=== PATIENT | male | born 1960 | race Caucasian/White ===

== ENCOUNTER 2016-05-19 05:32 | Inpatient (IN) | payer BC ==
[2016-05-18 10:37] LABS: BASOPHILS 0.2 %; BASOPHILS ABSOLUTE 0.02 10/3/uL (0.0-0.16); EOSINOPHILS 3.3 %; HEMATOCRIT 41.8 % (40.0-51.0); IMMATURE GRANULOCYTES 0.1 %; IMMATURE GRANULOCYTES ABSOLUTE 0.01 10/3/uL (0.0-0.11); LYMPHOCYTES 19.8 %; LYMPHOCYTES ABSOLUTE 2.43 10/3/uL (0.67-4.30); MEAN CORPUS HGB CONC 35.9 g/dL (32.0-36.0); MEAN CORPUSCULAR HEMOGLOB 32.2 pg (26.0-34.0); MEAN CORPUSCULAR VOLUME 89.7 fL (80-100); MEAN PLATELET VOLUME 9.7 fL (9.2-13.0); MONOCYTES 9.9 %; MONOCYTES ABSOLUTE 1.21 10/3/uL (0.21-1.20); NEUTROPHILS 66.7 %; NEUTROPHILS ABSOLUTE 8.19 10/3/uL (2.02-8.40); PLATELET COUNT 369 10/3/uL (150-400); RBC DISTRIBUTION WIDTH 14.4 % (12.0-16.0); RED CELL COUNT 4.66 10/6/uL (4.7-6.1); WHITE BLOOD CELLS 12.3 10/3/uL (4.5-10.5)
[2016-05-18 10:43] LABS: MANUAL DIFF NO %
[2016-05-18 10:51] LABS: A/G RATIO 1.3 (0.7-1.9); ALKALINE PHOSPHATASE 67 U/L (45-117); BUN (BLOOD UREA NITROGEN) 13 MG/DL (6-23); CALCIUM, SERUM 9.4 MG/DL (8.5-10.4); CHLORIDE, SERUM 99 MMOL/L (96-112); CO2 (CARBON DIOXIDE) 26 MMOL/L (24-34); CREATININE 0.82 MG/DL (0.70-1.30); GFR AFRICAN AMERICAN 116 ML/MIN (>=60); GFR NON AFRICAN AMERICAN 100 ML/MIN (>=60); GLOBULIN 3.2 G/DL (2.5-4.1); GLUCOSE, SERUM 96 MG/DL (60-99); POTASSIUM, SERUM 4.5 MMOL/L (3.5-5.3); SGOT(AST) 14 U/L (5-40); SGPT(ALT) 11 U/L (5-65); SODIUM, SERUM 135 MMOL/L (135-148); TOTAL BILIRUBIN 0.4 MG/DL (0-1.2); TOTAL PROTEIN 7.2 G/DL (6.0-8.5)
[2016-05-18 11:05] LABS: ASCORBIC ACID (UR NOT ORDER) NEG (NEG); BILIRUBIN, URINE NEGATIVE (NEG); KETONE, URINE NEGATIVE (NEG); LEUKOCYTE ESTERASE(NOT OR NEG (NEG); WBC (NOT ORDERED) (RFLEX) < 1 (0-5)
--- NOTE | ~2016-05-19 | OP ---
Record Of Operation [facility] [address] [place]. [address] NAME: AIDE PEOPLES : 64 STATUS : ADM IN PAT#: [id number] AGE: 56 ADM/REG DATE : 05/19/16 MR#: [id number] REPORT SERV DATE: 05/20/16 DICTATED BY: NELI BENNETT JR. 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 NAME OF OPERATION: Robotic-assisted right thoracoscopy for staging of lung cancer, removal of anterior mediastinal thymic nodule location 3A, intercostal nerve block. SURGEON: Neli Bennett M.D. RESIDENT SURGEON: Domenico Castillo MD EDUCATION PROGRAM ASSOCIATE: Finn Horta. ANESTHESIA: General endotracheal. FINDINGS: The patient was noted to have on PET-CT scan, a hypermetabolic lesion sitting above the innominate vein in the thymic tissue or in the anterior mediastinum. I labeled this with 3A location. It was highly suggestive of metastatic squamous cell cancer. Given its unusual location as well as the difficult location to reach, it was felt that staging thoracoscopy was the only option as far as getting a biopsy or more appropriately identifying whether this was related to his squamous cell cancer of the lung or not. We were able to find this with robotic assistance. There was a firm nodule contained within the remnants of thymic tissue in the anterior mediastinum sitting just above the innominate vein. It was removed in its entirety. Frozen section confirmed a granulomatous reaction from what looked like a foreign body material. There were a lot of crystals inside this nodularity. It was definitely not related to squamous cell carcinoma. This now down stages into a T3 N0 M0 and surgical resection is advised. DETAILS OF OPERATION: After adequate anesthesia, the patient was intubated. The left-sided double lumen endotracheal tube was placed. The patient was then positioned in the supine position. The right chest was elevated. He was prepped and draped in routine sterile fashion. The camera was introduced into the right chest cavity. Two additional Optiview was used in placement of the trocar. Two additional trocars were placed. The da Declan was docked. The instruments were placed under direct visualization. The chest was explored noting the tumor involving the chest wall. This did appear to be a resectable tumor, although, it was involving the chest wall. We were able to find the mass in the anterior mediastinum in the thymic tissue. This was excised removing some surrounding thymic tissue. It was withdrawn through the anterior trocar site. Frozen section confirmed this to be a non malignant granulomatous inflammation. Adequate hemostasis was obtained. The remainder Record Of Operation [facility] [id number] [place]. [address] NAME: AIDE PEOPLES : 64 STATUS : ADM IN [facility]#: [id number] AGE: 56 ADM/REG DATE : 05/19/16 MR#: [id number] REPORT SERV DATE: 05/20/16 DICTATED BY: NELI BENNETT JR. DATE: 05/19/16 REPORT STATUS : Draft TRANSCRIBED BY: IGNACIO DATE: 05/19/16 of the chest was explored noting no other contraindications of surgical resection. Intercostal nerve block was performed. A suction catheter was placed in chest cavity. The CO2 was removed and the lung was reinflated. The trocars were removed. The da Declan was undocked. Trocar sites were closed with running Vicryl sutures. The skin was closed with running monofilament suture. A Dermabond dressing was applied. The procedure was terminated at this point. The patient tolerated the procedure well and taken back to recovery room in stable condition. PINA/IGNACIO Neli Bennett Jr., M.D. / [id number] CC: Anabella Rahman Jr., MD
[~2016-05-19 05:32] MED LIST: DIL2TAB PO; KEPPRA500 PO; NEUR400 PO; ZOFRAN8 PO
[2016-05-20 06:55] LABS: BASOPHILS 0.1 %; BASOPHILS ABSOLUTE 0.01 10/3/uL (0.0-0.16); EOSINOPHILS 0.1 %; EOSINOPHILS ABSOLUTE 0.02 10/3/uL (0.0-0.53); HEMOGLOBIN 12.9 g/dL (13.6-17.8); IMMATURE GRANULOCYTES 0.1 %; IMMATURE GRANULOCYTES ABSOLUTE 0.02 10/3/uL (0.0-0.11); LYMPHOCYTES 13.6 %; LYMPHOCYTES ABSOLUTE 2.18 10/3/uL (0.67-4.30); MEAN CORPUS HGB CONC 35.8 g/dL (32.0-36.0); MEAN CORPUSCULAR HEMOGLOB 31.7 pg (26.0-34.0); MEAN CORPUSCULAR VOLUME 88.5 fL (80-100); MEAN PLATELET VOLUME 9.3 fL (9.2-13.0); MONOCYTES 10.2 %; MONOCYTES ABSOLUTE 1.63 10/3/uL (0.21-1.20); NEUTROPHILS 75.9 %; NEUTROPHILS ABSOLUTE 12.15 10/3/uL (2.02-8.40); PLATELET COUNT 328 10/3/uL (150-400); RBC DISTRIBUTION WIDTH 14.5 % (12.0-16.0); RED CELL COUNT 4.07 10/6/uL (4.7-6.1)
[2016-05-20 06:57] LABS: MANUAL DIFF NO %
[2016-05-20 07:06] LABS: BUN (BLOOD UREA NITROGEN) 10 MG/DL (6-23); CALCIUM, SERUM 8.5 MG/DL (8.5-10.4); CHLORIDE, SERUM 104 MMOL/L (96-112); CO2 (CARBON DIOXIDE) 24 MMOL/L (24-34); CREATININE 0.74 MG/DL (0.70-1.30); GFR AFRICAN AMERICAN 121 ML/MIN (>=60); GFR NON AFRICAN AMERICAN 105 ML/MIN (>=60); GLUCOSE, SERUM 102 MG/DL (60-99); POTASSIUM, SERUM 3.6 MMOL/L (3.5-5.3); SODIUM, SERUM 140 MMOL/L (135-148)
[2016-05-20] MEDS ORDERED: NORCO1 TAB PO (08:37)
[2016-05-20] MEDS ORDERED: MSCONTIN PO (08:37)
== END 2016-05-20 14:34 | disposition home or self-care (01) | DRG 168 ==
LOC: SDC/OF 05:32 → PACU 11:07 → 5NO 12:07
PROVIDERS: Thoracic Surgery (Cardiothoracic Vascular Surgery)
PROC: 3E0T3BZ Introduction of Anesthetic Agent into Peripheral Nerves and Plexi, Percutaneous Approach (ICD-10-PCS; 2016-05-19)
PROC: 8E0W4CZ Robotic Assisted Procedure of Trunk Region, Percutaneous Endoscopic Approach (ICD-10-PCS; 2016-05-19)
PROC: 07B74ZX Excision of Thorax Lymphatic, Percutaneous Endoscopic Approach, Diagnostic (ICD-10-PCS; principal; 2016-05-19 07:30)
DX: C34.11 Malignant neoplasm of upper lobe, right bronchus or lung (principal); J44.9 Chronic obstructive pulmonary disease, unspecified; G89.4 Chronic pain syndrome; G40.909 Epilepsy, unspecified, not intractable, without status epilepticus; Z87.891 Personal history of nicotine dependence
CPT/HCPCS: 36415; 80048; 80053; 81001; 82962; 83036; 85025; 85610; 86850; 86900; 86901; 87641; 88305; 88331; 93005; 94640; A9270-GY; G0378; J0690; J1170; J1885; J2250; J2370; J2405; J2710; J2795; J3010

== ENCOUNTER 2016-05-25 11:56 | Inpatient (IN) | payer BC ==
--- NOTE | ~2016-05-25 | OP ---
Record Of Operation [facility] [address] [place]. [address] NAME: AIDE PEOPLES : 64 STATUS : ADM IN PAT#: [id number] AGE: 56 ADM/REG DATE : 05/25/16 MR#: [id number] REPORT SERV DATE: 05/26/16 DICTATED BY: NELI BENNETT JR. DATE: 05/25/16 REPORT STATUS : Draft TRANSCRIBED BY: MODL DATE: 05/25/16 DATE OF PROCEDURE: 05/25/2016 PREOPERATIVE DIAGNOSES: Non-small cell lung cancer, right upper lobe with chest wall involvement, status post recent staging thoracoscopy, chronic obstructive pulmonary disease, history of seizure disorder. POSTOPERATIVE DIAGNOSIS: Non-small cell lung cancer, right upper lobe with chest wall involvement, status post recent staging thoracoscopy, chronic obstructive pulmonary disease, history of seizure disorder. NAME OF OPERATION: Bronchoscopy, right thoracoscopy with right upper lobectomy with En-bloc chest wall resection including ribs 3 and 4, complete mediastinal node dissection, yasmine stations 4R, 7, 9, 10R, 11R, and intercostal nerve block. SURGEON: Neli Bennett MD RESIDENT SURGEON: Dr. Domenico Castillo. MINERAL RESOURCES INSPECTOR: Finn Collins. ANESTHESIA: General tracheal. FINDINGS: The patient was noted to have obvious tumor involving the right upper lobe, extending into the chest wall. We had seen it was certainly involving rib #3. It was also adherent to rib #4. The only way to get a margin was to resect the chest wall including the intercostal muscle, chest wall muscle, and ribs 3 and 4. We did this en block. Our margins were grossly negative. The defect in the chest was not reconstructed. It was underneath the scapula. There area was marked with clips. The nodes had a benign appearance. Final pathology is pending. There were no unusual findings on bronchoscopy. Mucous secretions were evacuated. DETAILS OF OPERATION: After adequate general anesthesia, the patient was intubated. A bronchoscopy was performed, noting no contraindications to resection. A left-sided double- lumen endotracheal tube was then placed. The patient was then positioned in the left lateral decubitus position. The right chest was prepped and draped in routine sterile fashion. A small incision was made overlying the lower intercostal space, and a separate anterior trocar incision was also made. Through these two incision sites, above findings were noted. The mass extending into the chest well as explored. It was felt to definitely need a chest wall resection. The area was outlined with electrocautery. The ribs were resected with bone cutters and chisel and hammer, removing the ribs #3 and #4, both anteriorly and posteriorly. Electrocautery was used to complete the dissection, excising the area of the chest wall. This took about 2 hours of the operative time. Once we were able to have the tumor free from the surrounding chest wall. The right upper lobe was then resected in its traditional Record Of Operation [facility] [id number] [place]. [address] NAME: AIDE PEOPLES : 64 STATUS : ADM IN [facility]#: [id number] AGE: 56 ADM/REG DATE : 05/25/16 MR#: [id number] REPORT SERV DATE: 05/26/16 DICTATED BY: NELI BENNETT JR. DATE: 05/25/16 REPORT STATUS : Draft TRANSCRIBED BY: IGNACIO DATE: 05/25/16 fashion. The inferior pulmonary ligament was taken down. The inferior pulmonary vein was identified. The superior pulmonary vein and the middle lobe of the vein were identified. The superior pulmonary vein was then transected preserving the middle lobe branch. The pulmonary arterial branches were then divided with a vascular stapler. The bronchus was divided with a CASSANDRA stapler. The fissure was divided with multiple firings of the CASSANDRA stapler with tissue reinforcements. Dissection was difficult, given the scarring and fibrosis in this area. The specimen was then placed in a specimen bag and brought through the anterior trocar site. Trocar site had to be enlarged to get the chest wall dissection and ribs out. Nodes from the paratracheal, subcarinal, and inferior pulmonary ligament regions were removed as well as the hilar and right mainstem bronchial nodes. There were no nodes in the 4R location. Adequate hemostasis was obtained. The chest was thoroughly irrigated with sterile water. A 32-Turkish chest tube was placed. The lung was reinflated. The trocar site was closed in standard fashion with running Vicryl sutures. The skin was closed with running monofilament suture. A Dermabond dressing was applied, and the procedure was terminated at this point. The patient tolerated the procedure well and was taken back to the recovery room in stable condition. PINA/IGNACIO LUBIN: 05/25/2016 18:21:19 Neli Bennett Jr., M.D. / [id number] CC: Anabella Rahman Jr., MD
[~2016-05-25 11:56] MED LIST changes: +MSCONTIN PO; +NORCO1 TAB PO
[2016-05-25 18:59] LABS: BASOPHILS 0.1 %; BASOPHILS ABSOLUTE 0.02 10/3/uL (0.0-0.16); EOSINOPHILS 0 %; EOSINOPHILS ABSOLUTE 0.01 10/3/uL (0.0-0.53); IMMATURE GRANULOCYTES 0.3 %; IMMATURE GRANULOCYTES ABSOLUTE 0.06 10/3/uL (0.0-0.11); LYMPHOCYTES 5.4 %; LYMPHOCYTES ABSOLUTE 1.16 10/3/uL (0.67-4.30); MEAN CORPUS HGB CONC 34.6 g/dL (32.0-36.0); MEAN CORPUSCULAR HEMOGLOB 31.5 pg (26.0-34.0); MEAN PLATELET VOLUME 9.2 fL (9.2-13.0); MONOCYTES 1.3 %; MONOCYTES ABSOLUTE 0.27 10/3/uL (0.21-1.20); NEUTROPHILS 92.9 %; NEUTROPHILS ABSOLUTE 19.83 10/3/uL (2.02-8.40); PLATELET COUNT 417 10/3/uL (150-400); RBC DISTRIBUTION WIDTH 14.9 % (12.0-16.0); RED CELL COUNT 4.45 10/6/uL (4.7-6.1); WHITE BLOOD CELLS 21.4 10/3/uL (4.5-10.5)
[2016-05-25 19:00] LABS: HEMATOCRIT 40.5 % (40.0-51.0); MANUAL DIFF NO %
[2016-05-25 19:12] LABS: BUN (BLOOD UREA NITROGEN) 12 MG/DL (6-23); CALCIUM, SERUM 8.2 MG/DL (8.5-10.4); CHLORIDE, SERUM 107 MMOL/L (96-112); CO2 (CARBON DIOXIDE) 24 MMOL/L (24-34); CREATININE 0.76 MG/DL (0.70-1.30); GFR AFRICAN AMERICAN 120 ML/MIN (>=60); GFR NON AFRICAN AMERICAN 103 ML/MIN (>=60); SODIUM, SERUM 142 MMOL/L (135-148)
[2016-05-25 19:15] LABS: GLUCOSE, SERUM 143 MG/DL (60-99); POTASSIUM, SERUM 4.5 MMOL/L (3.5-5.3)
[2016-05-26 06:16] LABS: BASOPHILS 0.1 %; BASOPHILS ABSOLUTE 0.01 10/3/uL (0.0-0.16); EOSINOPHILS 0 %; HEMATOCRIT 41.2 % (40.0-51.0); HEMOGLOBIN 14.2 g/dL (13.6-17.8); IMMATURE GRANULOCYTES 0.4 %; IMMATURE GRANULOCYTES ABSOLUTE 0.08 10/3/uL (0.0-0.11); LYMPHOCYTES 5.5 %; LYMPHOCYTES ABSOLUTE 1.06 10/3/uL (0.67-4.30); MANUAL DIFF NO %; MEAN CORPUS HGB CONC 34.5 g/dL (32.0-36.0); MEAN CORPUSCULAR HEMOGLOB 31.3 pg (26.0-34.0); MEAN CORPUSCULAR VOLUME 90.7 fL (80-100); MEAN PLATELET VOLUME 9.9 fL (9.2-13.0); MONOCYTES 9.1 %; MONOCYTES ABSOLUTE 1.74 10/3/uL (0.21-1.20); NEUTROPHILS 84.9 %; NEUTROPHILS ABSOLUTE 16.31 10/3/uL (2.02-8.40); PLATELET COUNT 352 10/3/uL (150-400); RBC DISTRIBUTION WIDTH 14.9 % (12.0-16.0); RED CELL COUNT 4.54 10/6/uL (4.7-6.1); WHITE BLOOD CELLS 19.2 10/3/uL (4.5-10.5)
[2016-05-26 06:36] LABS: BUN (BLOOD UREA NITROGEN) 12 MG/DL (6-23); CALCIUM, SERUM 8.3 MG/DL (8.5-10.4); CHLORIDE, SERUM 107 MMOL/L (96-112); CO2 (CARBON DIOXIDE) 23 MMOL/L (24-34); CREATININE 0.77 MG/DL (0.70-1.30); GFR AFRICAN AMERICAN 119 ML/MIN (>=60); GFR NON AFRICAN AMERICAN 103 ML/MIN (>=60); GLUCOSE, SERUM 131 MG/DL (60-99); POTASSIUM, SERUM 4.8 MMOL/L (3.5-5.3); SODIUM, SERUM 141 MMOL/L (135-148)
[2016-05-27 07:19] LABS: BASOPHILS 0.1 %; BASOPHILS ABSOLUTE 0.01 10/3/uL (0.0-0.16); EOSINOPHILS 1.9 %; EOSINOPHILS ABSOLUTE 0.26 10/3/uL (0.0-0.53); HEMATOCRIT 37.2 % (40.0-51.0); HEMOGLOBIN 12.8 g/dL (13.6-17.8); IMMATURE GRANULOCYTES 0.4 %; IMMATURE GRANULOCYTES ABSOLUTE 0.06 10/3/uL (0.0-0.11); LYMPHOCYTES 18.8 %; LYMPHOCYTES ABSOLUTE 2.62 10/3/uL (0.67-4.30); MEAN CORPUS HGB CONC 34.4 g/dL (32.0-36.0); MEAN CORPUSCULAR HEMOGLOB 31.9 pg (26.0-34.0); MEAN CORPUSCULAR VOLUME 92.8 fL (80-100); MEAN PLATELET VOLUME 9.2 fL (9.2-13.0); MONOCYTES 9.3 %; NEUTROPHILS 69.5 %; NEUTROPHILS ABSOLUTE 9.72 10/3/uL (2.02-8.40); PLATELET COUNT 321 10/3/uL (150-400); RBC DISTRIBUTION WIDTH 15.4 % (12.0-16.0); RED CELL COUNT 4.01 10/6/uL (4.7-6.1)
[2016-05-27 07:24] LABS: MANUAL DIFF NO %
[2016-05-27 07:41] LABS: BUN (BLOOD UREA NITROGEN) 14 MG/DL (6-23); CALCIUM, SERUM 8.3 MG/DL (8.5-10.4); CHLORIDE, SERUM 107 MMOL/L (96-112); CREATININE 0.62 MG/DL (0.70-1.30); GFR AFRICAN AMERICAN 130 ML/MIN (>=60); GFR NON AFRICAN AMERICAN 112 ML/MIN (>=60); POTASSIUM, SERUM 4.2 MMOL/L (3.5-5.3); SODIUM, SERUM 143 MMOL/L (135-148)
[2016-05-27 07:42] LABS: CO2 (CARBON DIOXIDE) 28 MMOL/L (24-34); GLUCOSE, SERUM 101 MG/DL (60-99)
== END 2016-05-27 14:58 | disposition home or self-care (01) | DRG 164 ==
LOC: SDC/OF 11:56 → 5NO 20:49
PROVIDERS: Thoracic Surgery (Cardiothoracic Vascular Surgery)
PROC: 07B74ZZ Excision of Thorax Lymphatic, Percutaneous Endoscopic Approach (ICD-10-PCS; 2016-05-25)
PROC: 3E0T3BZ Introduction of Anesthetic Agent into Peripheral Nerves and Plexi, Percutaneous Approach (ICD-10-PCS; 2016-05-25)
PROC: 0BJ08ZZ Inspection of Tracheobronchial Tree, Via Natural or Artificial Opening Endoscopic (ICD-10-PCS; 2016-05-25)
PROC: 0BTC4ZZ Resection of Right Upper Lung Lobe, Percutaneous Endoscopic Approach (ICD-10-PCS; principal; 2016-05-25 14:15)
DX: C34.11 Malignant neoplasm of upper lobe, right bronchus or lung (principal); C79.89 Secondary malignant neoplasm of other specified sites; J44.9 Chronic obstructive pulmonary disease, unspecified; J95.811 Postprocedural pneumothorax; G40.909 Epilepsy, unspecified, not intractable, without status epilepticus
CPT/HCPCS: 36415; 71010; 71020; 80048; 82962; 85025; 86850; 86900; 86901; 88305; 88307; 88309; 88311; 88341; 88342; 94640; A9270-GY; J0690; J1170; J1885; J2250; J2370; J2405; J2550; J2710; J2795; J3010